=== PATIENT | female | born 1980 | race Caucasian/White ===

== ENCOUNTER 2017-06-03 21:53 | Emergency (ER) | payer SELFPAY ==
[~2017-06-03] VITALS: Ht 154.9 cm; Wt 63.5 kg
[2017-06-03 22:12] VITALS: BP 125/85
--- NOTE | 2017-06-03 22:20 | NUR ---
to lobby, a/w nick akins ermd noted
--- NOTE | 2017-06-03 23:11 | NUR ---
PATIENT LEFT WITHOUT BEING SEEN BY DR. Garza. NO FURTHER CARE PROVIDED FOR PATIENT.
== END 2017-06-03 23:11 | disposition left against medical advice (07) ==
LOC: MED 21:53
DX: R10.30 Lower abdominal pain, unspecified (principal); Z53.21 Procedure and treatment not carried out due to patient leaving prior to being seen by health care provider

== ENCOUNTER 2017-08-02 17:55 | Emergency (ER) | payer MEDICAID ==
[~2017-08-02] VITALS: Ht 154.9 cm; Wt 56.5 kg
[2017-08-02 18:03] VITALS: BP 128/71
[2017-08-02] MEDS ORDERED: NACL 0.9% 1,000 ML IV ONE (18:15)
[2017-08-02] MEDS ORDERED: KETOROLAC 30 MG/ML VIAL IVP ONE (18:15)
[2017-08-02] MEDS ORDERED: LORazepam 2 MG/ML VIAL IVP ONE (18:15)
[2017-08-02 18:35] LABS: APPEARANCE,URINE SL CLOUDY (CLEAR); BILIRUBIN,URINE 1+ (NEGATIVE); BLOOD, URINE 3+ (NEGATIVE); COLOR,URINE YELLOW (YELLOW); LEUKOCYTE ESTERASE ,URINE 2+ (NEGATIVE); NITRITE, URINE NEGATIVE (NEGATIVE); UGLUCOSE NEGATIVE (NEGATIVE)
[2017-08-02 18:37] LABS: BASOPHILS % (AUTO) 0.2 % (0.0-2.0); EOSINOPHILS % (AUTO) 0.2 % (0.0-4.0); HEMATOCRIT 36.9 % (36-48); HEMOGLOBIN 12.2 g/dL (12.0-16.0); LYMPHOCYTES # (AUTO) 1.1 K/uL (2.5-16.5); LYMPHOCYTES % (AUTO) 7.5 % (20.5-51.1); MEAN CORPUSCULAR HEMOGLOBIN 30 pg (27-31); MEAN CORPUSCULAR HGB CONC 33 g/dL (33-37); MONOCYTES # (AUTO) 0.9 K/uL (0.8-1.0); MONOCYTES % (AUTO) 6.1 % (1.7-9.3); NEUTROPHILS # (AUTO) 12.4 K/uL (1.8-7.7); PLATELET COUNT (AUTO) 199 K/uL (140-450); RED BLOOD CELL COUNT(AUTO) 4.05 MIL/uL (4.20-5.40); RED CELL DISTRIBUTION WIDTH 13.3 % (11.6-13.7); WHITE BLOOD COUNT (AUTO) 14.4 K/uL (4.8-10.8)
[2017-08-02 18:46] LABS: RBC,URINE 0-5 (RARE) /HPF (0-5); WBC,URINE 20-60 /HPF (0-5)
[2017-08-02 19:11] LABS: ANION GAP 11.2 (8-16); POTASSIUM 3.2 mmol/L (3.5-5.1)
[2017-08-02 19:15] LABS: ALBUMIN 3.3 g/dL (3.4-5.0); TOTAL BILIRUBIN 0.5 mg/dL (0.0-1.0)
[2017-08-02 21:08] VITALS: BP 128/71
== END 2017-08-02 21:08 | disposition home or self-care (01) ==
LOC: MED 17:55
DX: M54.42 Lumbago with sciatica, left side (principal); N83.202 Unspecified ovarian cyst, left side; N39.0 Urinary tract infection, site not specified; J45.909 Unspecified asthma, uncomplicated
CPT/HCPCS: 36415; 74176; 76856; 80053; 81001; 81025; 85025; 87086; 96361; 96374; 96375; 99285; J1885; J2060; J7030; Q0092

== ENCOUNTER 2017-08-06 20:15 | Emergency (ER) | payer MEDICAID ==
[~2017-08-06] VITALS: Ht 154.9 cm; Wt 57.7 kg
[2017-08-06 20:22] VITALS: BP 160/78
--- NOTE | 2017-08-06 21:30 | NUR ---
PATIENT LEFT WITHOUT BEING SEEN BY DR. TERRY. NO FURTHER CARE PROVIDED FOR PATIENT.
== END 2017-08-06 21:30 | disposition left against medical advice (07) ==
LOC: MED 20:15
DX: R10.9 Unspecified abdominal pain (principal); Z53.21 Procedure and treatment not carried out due to patient leaving prior to being seen by health care provider